=== PATIENT | female | born 1970 | race Caucasian/White ===

== ENCOUNTER 2019-07-26 18:18 | Emergency (ER) | payer OTHER ==
--- NOTE | 2019-07-26 21:01 | ER ---
Nurse's Notes [facility] Name: Devi Bacon Age: 49 yrs Sex: Female : 1970 Arrival Date: 07/26/2019 Time: 18:21 Bed 13 Private MD: Diagnosis: Acute upper respiratory infection, unspecified Presentation: 07/26 18:32 Presenting complaint: Patient states: SORE THROAT AND DYSURIA. Transition of care: bp patient was not received from another setting of care. Onset of symptoms was July 26, 2019. Risk Assessment: Do you want to hurt yourself or someone else? Patient reports no desire to harm self or others. Initial Sepsis Screen: Does the patient meet any 2 criteria? No. Patient's initial sepsis screen is negative. Does the patient have a suspected source of infection? No. Patient's initial sepsis screen is negative. Care prior to arrival: None. 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 - Social history:: Smoking status: Patient/guardian denies using tobacco. - Ebola Screening: : No symptoms or risks identified at this time. - Family history:: not pertinent. - Hospitalizations: : No recent hospitalization is reported. Screenin:10 Abuse screen: Denies threats or abuse. Denies injuries from another. Nutritional rr5 screening: No deficits noted. Tuberculosis screening: No symptoms or risk factors identified. Fall Risk None identified. Total Holt Fall Scale indicates No Risk (0-24 pts). Assessment: 20:10 General: Appears in no apparent distress. comfortable, Behavior is calm, cooperative, rr5 appropriate for age. 20:10 Pain: Complains of pain in head, throat and back Pain does not radiate. Pain currently rr5 is 6 out of 10 on a pain scale. Quality of pain is described as aching, Pain began gradually, Is intermittent. Neuro: Level of Consciousness is awake, alert, obeys commands, Oriented to person, place, time, situation, Appropriate for age Reports headache. Cardiovascular: Capillary refill < 3 seconds Patient's skin is warm and dry. Respiratory: Airway is patent Respiratory effort is even, unlabored, Respiratory pattern is regular, symmetrical. GI: Abdomen is flat. : Reports dysuria. EENT: Throat is clear with gag reflex present. Derm: Skin is intact, Skin temperature is warm. Musculoskeletal: Circulation, motion, and sensation intact. Capillary refill < 3 seconds, Reports pain in back. 20:10 Respiratory: Breath sounds are clear. rr5 21:19 Reassessment: Patient appears in no apparent distress at this time. Patient is alert, rr5 oriented x 3, equal unlabored respirations, skin warm/dry/pink. discharge instruction given and explained without complaints made. Vital Signs: 18:34 BP 131 / 74; Pulse 97; Resp 16; Temp 98.5; Pulse Ox 97% ; Weight 81.65 kg; Height 5 ft. bp 4 in. (162.56 cm); 20:00 BP 145 / 80; Pulse 80; Resp 16; Pulse Ox 98% on R/A; rr5 21:10 BP 140 / 85; Pulse 85; Resp 19; Temp 98.7; Pulse Ox 99% on R/A; rr5 18:34 Body Mass Index 30.90 (81.65 kg, 162.56 cm) bp ED Course: 18:21 Patient arrived in ED. mr 18:33 Triage completed. bp 18:34 Arm band placed on. bp 19:47 Román Lorenz MD is Attending Physician. rn 20:01 Zain Jones RN is Primary Nurse. rr5 20:10 Patient has correct armband on for positive identification. Bed in low position. Call rr5 light in reach. 21:19 No provider procedures requiring assistance completed. Patient did not have IV access rr5 during this emergency room visit. Administered Medications: No medications were administered Outcome: 21:00 Discharge ordered by . rn 21:19 Discharged to home via wheelchair. rr5 21:19 Condition: stable 21:19 Discharge instructions given to patient, Instructed on discharge instructions, follow up and referral plans. Demonstrated understanding of instructions, follow-up care. 21:20 Patient left the ED. rr5 Signatures: Fiordaliza Fonseca Román Lorenz MD MD rn Peltier, Brian, RN RN bp Zain Jones RN RN rr5
--- NOTE | 2019-07-26 21:01 | EDPHYS ---
Physician Documentation [facility] Name: Devi Bacon Age: 49 yrs Sex: Female : 1970 Arrival Date: 07/26/2019 Time: 18:21 Bed 13 Private MD: ED Physician Román Lorenz HPI: 07/26 20:55 This 49 yrs old Female presents to ER via Wheelchair with complaints of Sore rn Throat, Back Pain, Headache. 20:56 The patient presents with sore throat. The patient describes throat pain as dry, raw. rn Onset: The symptoms/episode began/occurred yesterday. Severity of symptoms: At their worst the symptoms were moderate, in the emergency department the symptoms are unchanged. Associated signs and symptoms: Pertinent positives: cough, flu-like symptoms, rhinorrhea. The patient has experienced similar episodes in the past. The patient has not recently seen a physician. Reports grandson with similar symptoms, was seen here and neg strep, + subjective fever, + congestion and sore throat, + mild cough. Also reports darker urine. Feels better now. No neck stiffness. . 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 - Social history:: Smoking status: Patient/guardian denies using tobacco. - Ebola Screening: : No symptoms or risks identified at this time. - Family history:: not pertinent. - Hospitalizations: : No recent hospitalization is reported. ROS: 20:56 Constitutional: + fever Eyes: Negative for injury, pain, redness, and discharge, ENT: + rn sore throat Neck: Negative for injury, pain, and swelling, Cardiovascular: Negative for chest pain, palpitations, and edema, Respiratory: + cough Abdomen/GI: Negative for abdominal pain, nausea, vomiting, diarrhea, and constipation, MS/Extremity: Negative for injury and deformity, Skin: Negative for injury, rash, and discoloration, Neuro: Negative for headache, weakness, numbness, tingling, and seizure. Exam: 20:56 Constitutional: This is a well developed, well nourished patient who is awake, alert, rn and in no acute distress. Head/Face: Normocephalic, atraumatic. Eyes: Pupils equal round and reactive to light, extra-ocular motions intact. Lids and lashes normal. Conjunctiva and sclera are non-icteric and not injected. Cornea within normal limits. Periorbital areas with no swelling, redness, or edema. ENT: Mild pharyngeal erythema, no swelling or exudate. NO stridor. Neck: Trachea midline, no thyromegaly or masses palpated, and no cervical lymphadenopathy. Supple, full range of motion without nuchal rigidity, or vertebral point tenderness. No Meningismus. Respiratory: No increased work of breathing, no retractions or nasal flaring. Neuro: Awake and alert, GCS 15, oriented to person, place, time, and situation. Cranial nerves II-XII grossly intact. Motor strength 5/5 in all extremities. Sensory grossly intact. Cerebellar exam normal. Vital Signs: 18:34 BP 131 / 74; Pulse 97; Resp 16; Temp 98.5; Pulse Ox 97% ; Weight 81.65 kg; Height 5 ft. bp 4 in. (162.56 cm); 20:00 BP 145 / 80; Pulse 80; Resp 16; Pulse Ox 98% on R/A; rr5 21:10 BP 140 / 85; Pulse 85; Resp 19; Temp 98.7; Pulse Ox 99% on R/A; rr5 18:34 Body Mass Index 30.90 (81.65 kg, 162.56 cm) bp MDM: 19:47 Patient medically screened. rn 20:56 Differential diagnosis: bronchitis, group A strep tonsillitis, influenza, laryngitis, rn pharyngitis. Data reviewed: vital signs, nurses notes, lab test result(s), and as a result, I will discharge patient. Counseling: I had a detailed discussion with the patient and/or guardian regarding: the historical points, exam findings, and any diagnostic results supporting the discharge/admit diagnosis, lab results, the need for outpatient follow up, to return to the emergency department if symptoms worsen or persist or if there are any questions or concerns that arise at home. Special discussion: I discussed with the patient/guardian in detail that at this point there is no indication for admission to the hospital. It is understood, however, that if the symptoms persist or worsen the patient needs to return immediately for re-evaluation. 20:56 ED course: Strep and flu neg, grandson also neg, improved symptoms, most likely viral. .rn 07/26 19:41 Order name: Strep; Complete Time: 21:00 ca1 07/26 19:59 Order name: Flu; Complete Time: 21:00 rn 07/26 19:59 Order name: Urine Dipstick-Ancillary (obtain specimen); Complete Time: 20:01 rn 07/26 20:05 Order name: Throat Culture EDMS Administered Medications: No medications were administered Disposition: 07/26/19 21:00 Discharged to Home. Impression: Acute upper respiratory infection, unspecified. - Condition is Stable. - Discharge Instructions: Upper Respiratory Infection, Adult. - Medication Reconciliation Form, Thank You Letter, Antibiotic Education, Prescription Opioid Use form. - Follow up: Private Physician; When: As needed; Reason: Recheck today's complaints, Re-evaluation by your physician. - Problem is new. - Symptoms have improved. Signatures: Dispatcher [employer] EDMS Román Lorenz MD MD rn Peltier, Brian, RN RN bp Roque, Raymond, RN RN rr5 Corrections: (The following items were deleted from the chart) 21:20 21:00 07/26/2019 21:00 Discharged to Home. Impression: Acute upper respiratory rr5 infection, unspecified. Condition is Stable. Forms are Medication Reconciliation Form, Thank You Letter, Antibiotic Education, Prescription Opioid Use. Follow up: Private Physician; When: As needed; Reason: Recheck today's complaints, Re-evaluation by your physician. Problem is new. Symptoms have improved. rn
[2019-07-26 22:24] VITALS: BP 140/85; TEMP 98.7; O2SAT 99
== END 2019-07-26 21:20 | disposition home or self-care (01) ==
LOC: ER 18:18
DX: J06.9 Acute upper respiratory infection, unspecified (principal)
CPT/HCPCS: 87070; 87081; 87804; 99281